=== PATIENT | female | born 1990 | race Caucasian/White ===

== ENCOUNTER 2021-03-07 11:03 | Emergency (ER) | payer OTHER ==
[~2021-03-07] VITALS: Ht 162.6 cm; Wt 76.0 kg
[2021-03-07 12:38] VITALS: BP 135/80
== END 2021-03-07 13:23 | disposition home or self-care (01) ==
LOC: EMS 11:07
DX: Z11.1 Encounter for screening for respiratory tuberculosis (principal)
CPT/HCPCS: 71045; 99283